=== PATIENT | female | born 2000 | race Caucasian/White ===

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

== ENCOUNTER 2022-12-25 14:37 | Outpatient (RCR) | payer OTHER ==
[~2022-12-25 14:37] MED LIST: CLEOCIN HCL300 MG PO
== END 2023-01-02 | disposition home or self-care (01) ==
LOC: WSOH
DX: S00.83XA Contusion of other part of head, initial encounter (principal); J45.909 Unspecified asthma, uncomplicated; Y99.0 Civilian activity done for income or pay